=== PATIENT | female | born 1940 | race Caucasian/White ===

== ENCOUNTER 2017-07-28 09:59 | Outpatient (CLI) | payer MEDICARE ==
--- NOTE | 2017-07-28 11:58 | RAD ---
LUMBAR SPINE TWO VIEWS: History: Back pain. Intervertebral degenerative disc changes in the lumbar region. Old compression fr acture. Comparison: 05-17-14 FINDINGS: On the frontal view there is a scoliotic curvature, convexity to the left, with apex at L2-3 which ap pears stable. On the lateral view there is a wedge compression deformity involving the L1 vertebra which also remai ns stable in appearance. Minimal retropulsion of the posterior cortex of L1. The only lumbar vertebra maintain height. There is an anterolisthesis at L5-S1, grade I, which is stable in appearance. Mild degenerative spurring and mild facet hypertrophy appears unchanged. IMPRESSION: The lumbar spine findings appear stable from 05-17-14. POS: [facility]
--- NOTE | 2017-07-28 13:00 | MRI ---
MRI LUMBAR SPINE WITHOUT CONTRAST: INDICATIONS: History of lumbar compression fracture three days ago. The patient reports pain with walking, standi ng, and sitting. The pain is localized into the right buttock region. COMPARISON: Prior exam dated 08/06/2014. FINDINGS: The moderate to prominent compression abnormality involving L1 is stable. Mild retrolisthesis of L1 on L2 is stable. The conus is seen to terminate at approximately L1. The visualized retroperitoneum and paravertebral soft tissues appear within normal limits. There is stable levoscoliosis of the xiomara mbar spine. At L5-S1, there is grade 1 anterolisthesis. There is moderate to severe facet joint degenerative blanka nge. There is an asymmetric to the left broad-based pseudo bulge. Constellation of findings induces mild left neural foraminal narrowing. At L4-L5, there is mild facet joint degenerative change and broad-based bulge inducing mild left neur al foraminal narrowing. At L3-L4, there is a broad-based bulge with facet joint degenerative change without appreciable centr al canal or neural foraminal narrowing. At L2-L3, there is no appreciable central canal or neural foraminal narrowing. At L1-L2, there is an asymmetric to the right disk osteophyte complex inducing mild right neural fora cary narrowing, which is stable. At T12-L1, there is a broad-based disk osteophyte complex causing mild effacement of the ventral suba rachnoid space, without appreciable conus contact. No appreciable neural foraminal narrowing is evid ent. IMPRESSION: 1. Stable multilevel spondylosis of the lumbar spine. 2. Stable compression abnormality of L1. 3. Grade 1 anterolisthesis of L5 on S1, stable. 4. Stable mild left neural foraminal narrowing at L5-S1. 5. Mild retrolisthesis of L1-L2 is stable. POS: [facility]
== END 2017-07-28 10:00 | disposition home or self-care (01) ==
LOC: TBSIIMAG 09:59
PROVIDERS: ATTEND Neurological Surgery
DX: M51.36 Other intervertebral disc degeneration, lumbar region (principal); Z87.81 Personal history of (healed) traumatic fracture; M47.896 Other spondylosis, lumbar region; M99.83 Other biomechanical lesions of lumbar region; M99.84 Other biomechanical lesions of sacral region
CPT/HCPCS: 72100; 72148

== ENCOUNTER 2017-08-05 09:14 | Outpatient (CLI) | payer MEDICARE ==
--- NOTE | 2017-08-05 11:36 | RAD ---
LUMBAR SPINE THREE VIEWS: History: Low back pain. Comparison: 07-28-17 FINDINGS: Near complete compression of the L1 vertebral body and grade I spondylolisthesis at the lumbosacral j unction are again demonstrated. Other vertebral body heights are maintained. The lumbosacral spondylo listhesis is 0.6 cm when neutral. It is measured at 0.8 cm on the flexion and extension views. Promin ent osteophytosis throughout the lower facets. IMPRESSION: 1. Translational motion of the Grade I spondylolisthesis at the lumbosacral junction. 2. Near complete compression of the L1 vertebral body with kyphotic angulation. 3. Lower lumbar spondylosis. POS: [facility]
== END 2017-08-05 09:15 | disposition home or self-care (01) ==
LOC: RAD 09:14
PROVIDERS: ATTEND Nurse Practitioner Family
DX: M43.17 Spondylolisthesis, lumbosacral region (principal); M47.896 Other spondylosis, lumbar region
CPT/HCPCS: 72100

== ENCOUNTER 2017-08-24 13:04 | Outpatient (CLI) | payer MEDICARE | END 2017-08-24 13:05 | disposition home or self-care (01) | LOC: BICMAMMO 13:04 | PROVIDERS: ATTEND Family Medicine | DX: Z12.31 Encounter for screening mammogram for malignant neoplasm of breast (principal); Z80.3 Family history of malignant neoplasm of breast | CPT/HCPCS: 77063; 77067 ==

== ENCOUNTER 2018-02-09 09:43 | Emergency (ER) | payer MEDICARE ==
[2018-02-09] MEDS ORDERED: Bacitracin Zinc 1 Packet ONE (10:17)
== END 2018-02-09 10:20 | disposition home or self-care (01) ==
LOC: ERS 09:43
DX: T23.201A Burn of second degree of right hand, unspecified site, initial encounter (principal); J30.2 Other seasonal allergic rhinitis; E78.5 Hyperlipidemia, unspecified; G47.30 Sleep apnea, unspecified; I10 Essential (primary) hypertension; Z79.899 Other long term (current) drug therapy; Z79.82 Long term (current) use of aspirin; X19.XXXA Contact with other heat and hot substances, initial encounter
CPT/HCPCS: 99283

== ENCOUNTER 2019-02-18 01:30 | Emergency (ER) | payer MEDICARE ==
[2019-02-18 02:34] LABS: Bilirubin Negative (Negative); Blood, Urine 3+ (Negative); Clarity Turbid (Clear); Glucose, Urine (Dipstick) Normal (Negative); Leukocyte 500 Leu/uL (Negative); Nitrite Negative (Negative); Protein, Urine (Dipstick) 20 mg/dL (Neg-Trace); RBC/HPF Greater than 50 HPF (0-3); Squamous Epithelial 0-3 HPF (0-3); Urobilinogen Normal mg/dL (Less than 2); WBC/HPF Greater than 50 HPF (0-3)
[2019-02-18 02:35] LABS: Bacteria/HPF 1+ HPF (None Seen)
== END 2019-02-18 03:01 | disposition home or self-care (01) ==
LOC: ERS 01:30
DX: N39.0 Urinary tract infection, site not specified (principal); E78.00 Pure hypercholesterolemia, unspecified; I10 Essential (primary) hypertension; G47.30 Sleep apnea, unspecified; E78.5 Hyperlipidemia, unspecified; Z79.82 Long term (current) use of aspirin; Z79.899 Other long term (current) drug therapy
CPT/HCPCS: 81003; 81015; 87086; 99283

== ENCOUNTER 2019-11-29 22:18 | Inpatient (IN) | payer MEDICARE, OTHER ==
[2019-11-29 22:53] LABS: #Basophils 0.1 thou/uL (0.0-0.2); #Eosinphils 0.2 thou/uL (0.0-0.7); #Lymphocytes 4.8 thou/uL (1.20-3.40); #Monocytes 0.9 thou/uL (0.11-0.59); #Neutrophils 4.8 thou/uL (1.40-6.50); %Basophils 0.6 % (0.0-1.0); %Eosinophils 1.6 % (0.0-10.0); %Lymphocytes 44.8 % (21.0-51.0); %Monocytes 8.5 % (0.0-10.0); %Neutrophils 44.6 % (42.0-75.0); Mean Corpuscular HGB CONC 33.4 g/dL (32.0-36.0); Mean Corpuscular Hemoglobin 29.6 pg (27.0-31.0); Mean Corpuscular Volume 88.8 fL (78.0-98.0); Mean Platelet Volume 6.9 fL (7.4-10.4); Platelet Count 262 thou/uL (130-400); RBC Distribution Width 11.9 % (11.5-14.5); White Blood Cell (WBC) Count 10.7 thou/uL (4.8-10.8)
[2019-11-29 23:13] LABS: ALT (SGPT) 22 U/L (8-55); AST (SGOT) 27 U/L (5-34); Albumin 4.4 g/dL (3.4-4.8); Alkaline Phosphatase 88 U/L (40-110); Anion Gap 18 mmol/L (10-20); BUN (Urea Nitrogen) 17 mg/dL (9.8-20.1); Bilirubin, Total 0.6 mg/dL (0.2-1.2); Calc. Creatinine Clearance 0 mL/min (70-130); Calcium 10.1 mg/dL (7.8-10.44); Carbon Dioxide 19 mmol/L (23-31); Chloride 108 mmol/L (98-107); Estimated GFR-MDRD 87; Globulin 2.7 g/dL (2.4-3.5); Glucose 95 mg/dL (83-110); Potassium 3.9 mmol/L (3.5-5.1); Protein, Total 7.1 g/dL (6.0-8.3); Sodium 141 mmol/L (136-145)
[2019-11-30] MEDS ORDERED: Ondansetron PF 4 MG/2 ML Vial IVP PRN (00:45)
[2019-11-30] MEDS ORDERED: Ondansetron ODT 4 MG TAB SL PRN (00:45)
[2019-11-30] MEDS ORDERED: Acetaminophen 325 MG TAB PO PRN (01:12)
--- NOTE | 2019-11-30 01:55 | PDOC.HHP ---
Hospitalist HPI - History of Present Illness Bloody stools History of Present Illness: Mrs. Kirkland is a 71-year-old female with a past medical history of hypertension, hyperlipidemia, obstructive sleep apnea, who presents for bloody stools. Patient reports that earlier this morning she had 6-7 episodes of large amounts of dark red blood mixed with clots and diarrhea. No history of prior GIB. Does report a remote history of diverticulitis which was treated as an outpatient years ago. Daily baby ASA, but otherwise no NSAIDs. Pt felt lightheaded with some mild abdominal cramping, but otherwise well. Denies chest pain, SOB, abdominal pain. Denies N/V. Does endorse history of hemorrhoids, but reports blood from those was light pink and mild streaking, compared to these current large volume maroon stools. In ED initial labs revealed H/H of 13.0/39, WBC 10.7. BUN/Cr 17/0.66. lipase 34. Patient received 1L NS. Vital signs 130/78, 92, 17, 97.5, 94% on room air. Hospitalist ROS - Review of Systems Constitutional: denies: fever, chills, sweats, weakness, malaise, other Eyes: denies: pain, vision change, conjunctivae inflammation, eyelid inflammation, redness, other ENT: denies: ear pain, ear discharge, nose pain, nose discharge, nose congestion, mouth pain, mouth swelling, throat pain, throat swelling, other Respiratory: denies: cough, dry, shortness of breath, hemoptysis, SOB with excertion, pleuritic pain, sputum, wheezing, other Cardiovascular: reports: light headedness. denies: chest pain, palpitations, orthopnea, paroxysmal noc. dyspnea, edema, other Gastrointestinal: reports: melena, hematochezia. denies: nausea, vomiting, abdominal pain, diarrhea, constipation, other Genitourinary: denies: dysuria, frequency, incontinence, hematuria, retention, other Musculoskeletal: denies: neck pain, shoulder pain, arm pain, back pain, hand pain, leg pain, foot pain, other Skin: denies: rash, lesions, luna, bruising, other Neurological: denies: weakness, numbness, incoordination, change in speech, confusion, seizures, other - Medication Medications: Home medications include: 1. lisinopril 2. atorvastatin 3. metoprolol 4. baby ASA No known drug allergy Hospitalist History - Past Medical History Source: patient Cardiac: reports: no pertinent history Pulmonary: reports: high cholesterol, hypertension, Other (sleep apnea) Gastrointestinal: reports: Diverticulosis, Hemorrhoids - Past Surgical History Past Surgical History: reports: Appendectomy, Hysterectomy, Hernia Repair - Family History Family History: reports: no pertinent history - Social History Smoking Status: Never smoker Alcohol: reports: Rare Drugs: reports: none Living Situation: With Family Activity level: independent ambulation - Exam General Appearance: NAD, awake alert Eye: PERRL, anicteric sclera ENT: normocephalic atraumatic, no oropharyngeal lesions, moist mucosa Neck: supple, symmetric, no JVD, no thyromegaly, no lymphadenopathy, no carotid bruit Heart: RRR, no murmur, no gallops, no rubs, normal peripheral pulses Respiratory: CTAB, no wheezes, no rales, no ronchi, normal chest expansion, no tachypnea, normal percussion Gastrointestinal: soft, non-tender, non-distended, normal bowel sounds, no palpable masses, no hepatomegaly, no splenomegaly, no bruit Extremities: no cyanosis, no clubbing, no edema Skin: normal turgor, no lesions, no rashes Neurological: cranial nerve grossly intact, normal sensation to touch, no weakness, no focal deficits, no new deficit Musculoskeletal: normal tone, normal strength, no muscle wasting Psychiatric: normal affect, normal behavior, A&O x 3 Hospitalist Results - Labs Result Diagrams: 11/29/19 22:35 11/29/19 22:35 Lab results: WBC 10.7 thou/uL (4.8-10.8) 11/29/19 22:35 Hgb 13.0 g/dL (12.0-16.0) 11/29/19 22:35 Hct 39.0 % (36.0-47.0) 11/29/19 22:35 MCV 88.8 fL (78.0-98.0) 11/29/19 22:35 Plt Count 262 thou/uL (130-400) 11/29/19 22:35 Neutrophils % 44.6 % (42.0-75.0) 11/29/19 22:35 Sodium 141 mmol/L (136-145) 11/29/19 22:35 Potassium 3.9 mmol/L (3.5-5.1) 11/29/19 22:35 Chloride 108 mmol/L (98-107) H 11/29/19 22:35 Carbon Dioxide 19 mmol/L (23-31) L 11/29/19 22:35 BUN 17 mg/dL (9.8-20.1) 11/29/19 22:35 Creatinine 0.66 mg/dL (0.6-1.1) 11/29/19 22:35 Glucose 95 mg/dL (83-110) 11/29/19 22:35 Calcium 10.1 mg/dL (7.8-10.44) 11/29/19 22:35 Total Bilirubin 0.6 mg/dL (0.2-1.2) 11/29/19 22:35 AST 27 U/L (5-34) 11/29/19 22:35 ALT 22 U/L (8-55) 11/29/19 22:35 Alkaline Phosphatase 88 U/L (40-110) 11/29/19 22:35 Serum Total Protein 7.1 g/dL (6.0-8.3) 11/29/19 22:35 Albumin 4.4 g/dL (3.4-4.8) 11/29/19 22:35 Lipase 34 U/L (8-78) 11/29/19 22:35 Hospitalist H&P A/P - Problem (1) GIB (gastrointestinal bleeding) Code(s): K92.2 - GASTROINTESTINAL HEMORRHAGE, UNSPECIFIED Status: Acute (2) Hypertension Code(s): I10 - ESSENTIAL (PRIMARY) HYPERTENSION Status: Acute (3) Hyperlipidemia Code(s): E78.5 - HYPERLIPIDEMIA, UNSPECIFIED Status: Acute - Plan Plan: GIB: 79F with hx HTN, HLD, DWAYNE who presents with 1 day of large volume maroon colored stools with clots. On daily baby ASA. H/H stable on admission at 13.0/39, however may have not yet equilibrated. BUN 17. Mild lightheadedness, otherwise asymptomatic. Vitals stable. PLAN: -H/H q6hr, PT/INR, LFTs -Pantoprazole q12 -Two large bore IVs. IVF -Type and screen -GI consult, NPO at midnight -Hold home ASA Hypertension: History of hypertension. On home lisinopril, metoprolol. Plan: -Hold home medication in setting of GI bleed -Monitor blood pressure Obstructive sleep apnea: Continue home CPAP at night Hyperlipidemia Continue home atorvastatin 20 mg. DVT prophylaxis: Contraindicated secondary to GI bleed, encourage ambulation, SCDs CODE STATUS: DO NOT RESUSCITATE. Patient reports that she has DNR, MPOA paperwork filed out of hospital and would like to continue to be DNR while inpatient. She has named her Liban Kirkland as her designated medical decision-maker. Case discussed with attending physician Dr. Lima.
[2019-11-30 02:15] LABS: #Basophils 0.1 thou/uL (0.0-0.2); #Eosinphils 0.2 thou/uL (0.0-0.7); #Lymphocytes 3.7 thou/uL (1.20-3.40); #Monocytes 0.9 thou/uL (0.11-0.59); #Neutrophils 5.6 thou/uL (1.40-6.50); %Basophils 0.9 % (0.0-1.0); %Eosinophils 1.8 % (0.0-10.0); %Monocytes 8.5 % (0.0-10.0); %Neutrophils 53.7 % (42.0-75.0); Hemoglobin 11.9 g/dL (12.0-16.0); Mean Corpuscular HGB CONC 33.7 g/dL (32.0-36.0); Mean Corpuscular Hemoglobin 29.9 pg (27.0-31.0); Mean Corpuscular Volume 88.6 fL (78.0-98.0); Mean Platelet Volume 6.5 fL (7.4-10.4); Platelet Count 238 thou/uL (130-400); RBC Distribution Width 11.8 % (11.5-14.5); Red Blood Cell (RBC) Count 3.98 mill/uL (4.20-5.40); White Blood Cell (WBC) Count 10.5 thou/uL (4.8-10.8)
[2019-11-30 02:22] VITALS: BMI 26.3
[2019-11-30 02:45] LABS: Anion Gap 18 mmol/L (10-20); BUN (Urea Nitrogen) 17 mg/dL (9.8-20.1); Calc. Creatinine Clearance 82 mL/min (70-130); Calcium 9.6 mg/dL (7.8-10.44); Carbon Dioxide 19 mmol/L (23-31); Chloride 108 mmol/L (98-107); Estimated GFR-MDRD Greater than 90; Glucose 112 mg/dL (83-110); Potassium 3.7 mmol/L (3.5-5.1); Sodium 141 mmol/L (136-145)
[2019-11-30] MEDS ORDERED: Sodium Chloride 0.9% (PF) 10 ML VIAL FS PRN (03:30)
[2019-11-30 06:19] LABS: INR-International Normal Ratio 1.1; PTT 27.7 sec (22.9-36.1); Prothrombin Time 13.8 sec (12.0-14.7)
[2019-11-30 06:41] LABS: ALT (SGPT) 20 U/L (8-55); AST (SGOT) 21 U/L (5-34); Albumin 3.8 g/dL (3.4-4.8); Alkaline Phosphatase 74 U/L (40-110); Bilirubin, Direct 0.2 mg/dL (0.1-0.3); Bilirubin, Total 0.5 mg/dL (0.2-1.2); Magnesium 1.8 mg/dL (1.6-2.6); Phosphorus 3.3 mg/dL (2.3-4.7); Protein, Total 5.8 g/dL (6.0-8.3)
[2019-11-30 07:55] LABS: Hemoglobin 11.1 g/dL (12.0-16.0)
[2019-11-30] MEDS: Pantoprazole 40 MG VIAL IVP SCH ×2 (08:24→20:01)
[2019-11-30] MEDS: Sodium Chloride 0.9% 1,000 ML IV SCH ×2 (08:28→15:21)
[2019-11-30 12:47] LABS: SARS-CoV-2 MS2 Positive; SARS-CoV-2 N Gene Negative; SARS-CoV-2 S Gene Negative; SARS-CoV-2 by NAA Not Detected (NotDetected); SARS-CoV-2 orf1ab Negative
[2019-11-30 14:13] LABS: Hemoglobin 11.6 g/dL (12.0-16.0)
--- NOTE | 2019-11-30 15:34 | PDOC.HOSPP ---
- Subjective Encounter Date: 11/30/19 Encounter Time: 04:00 Subjective: The patient states she had one bloody stool at 7 am, dark red in color. At 9 am it was light pink. At 11 am she had another bloody stool. At 12;00 pm she had no blood just streaks when she wiped - Objective Vital Signs & Weight: Vital Signs (12 hours) Temp Pulse Resp BP Pulse Ox 11/30/19 11:11 97.8 F 84 20 111/71 92 L 11/30/19 07:01 98.1 F 96 18 115/75 93 L 11/30/19 04:00 96 Weight Weight 153 lb 4.8 oz Result Diagrams: 11/30/19 13:37 11/30/19 01:52 Hospitalist ROS - Review of Systems Constitutional: denies: fever, chills - Medication Medications: Active Medications Generic Name Dose Route Start Last Admin Trade Name Freq PRN Reason Stop Dose Admin Acetaminophen 650 mg 11/30/19 01:12 11/30/19 08:32 Acetaminophen 325 Mg Tab PO 650 mg Q4H PRN Administration Headache/Fever/Mild Pain (1-3) Sodium Chloride 1,000 mls @ 75 mls/hr 11/30/19 01:15 11/30/19 15:21 Normal Saline 0.9% IV 1,000 mls .[id number] VARUN Administration Pantoprazole Sodium 40 mg 11/30/19 09:00 11/30/19 08:24 Pantoprazole 40 Mg Vial IVP 40 mg Q12HR VARUN Administration - Exam General Appearance: NAD, awake alert Eye: PERRL, anicteric sclera ENT: normocephalic atraumatic, no oropharyngeal lesions Neck: supple, symmetric, no JVD Heart: RRR, no murmur, no gallops, no rubs Respiratory: CTAB, no wheezes, no rales, no ronchi Gastrointestinal: soft, non-distended Gastrointestinal - other findings: rectal exam: hemorrhoid with no evidence of blood . LLQ tenderness Extremities: no cyanosis, no clubbing, no edema Skin: normal turgor, no lesions, no rashes Neurological: cranial nerve grossly intact, normal sensation to touch, no focal deficits, no new deficit Hosp A/P - Plan This is a 79 year old female with no PMH of GI bleed presenting with lower GI bleed Acute GI bleed - Hb stable at 11, continue protonix for now - will check CT abdomen - GI was consulted, plan for EGD and colonoscopy tomorrow - continue protonix Hyperlipidemia - continue atorvastatin Hypertension - hold metoprolol
--- NOTE | 2019-11-30 16:21 | CT ---
CT Abdomen Pelvis WO Con 11/30/2019 4:02 PM HISTORY: Rectal bleeding which started one day ago. COMPARISON: Postcontrast CT abdomen and pelvis on 01/12/2014. Technique: Multiple contiguous axial CT images are obtained through the abdomen and pelvis without IV contrast. Coronal reformats are provided. FINDINGS: This examination is limited for the evaluation of solid organs and vascular structures due to the lac k of intravenous contrast. Lower Chest: Calcified granulomata are again seen at each lung base. Abdomen: Liver: Grossly normal non-enhanced CT appearance. Gallbladder: Surgically absent. Pancreas: Grossly normal nonenhanced CT appearance. Spleen: Calcified granulomata. Adrenals: Grossly normal nonenhanced CT appearance. Kidneys: No renal calculi are visualized, and there is no evidence of hydronephrosis. Ureters: No ureteral calculus is seen.. Pelvis: Urinary bladder: within normal limits. Reproductive Organs: Evidence of hysterectomy. Lymph Nodes: No enlarged lymph nodes. Bowel: Evidence of colonic diverticulosis. Loops of small bowel are normal in caliber. Peritoneum: No free fluid, free air, or fluid collection. Retroperitoneum: within normal limits. Vessels: Vascular calcifications again seen in the abdominal aorta and iliac arteries.. Abdominal Wall: within normal limits. Bones: Burst fracture L1 vertebral body with greater than 50% loss of height is again seen. Tripped h eight loss is similar to prior study as well as MRI lumbar spine on 07/28/2017. Again noted is grade 1 anterolisthesis of L5 on S1. Left convex curvature lumbar spine is present. IMPRESSION: 1. No renal or ureteral calculi are seen bilaterally. 2. Postsurgical changes related to cholecystectomy and hysterectomy. 3. Burst fracture with greater than 50% loss of height L1 vertebral body. Degree of height loss is si milar to MRI lumbar spine on 07/28/2017. 4. Colonic diverticulosis. 5. Vascular calcifications.
[2019-11-30] MEDS ORDERED: GoLYTELY 4,000 ml Bottle PO SCH (17:00)
[2019-12-01] MEDS: Sodium Chloride 0.9% 1,000 ML IV SCH (03:29)
--- NOTE | 2019-12-01 07:20 | CON ---
DATE OF CONSULTATION: 11/30/2019 REFERRING PHYSICIAN: Dr. Brooke Link. REASON FOR CONSULTATION: GI bleeding. HISTORY OF PRESENT ILLNESS: Ms. Cherelle Kirkland is a very pleasant 79-year-old female, admitted to hospital last night through the ER with painless rectal bleeding. Around 5 o'clock yesterday evening, she felt like going to the bathroom. She passed some gas and followed by passage of bright-red blood per rectum. Apparently, she has had about 4 or 5 episodes yesterday before she came to the ER. This morning, she has had 2 more episodes of rectal bleeding. The patient has no abdominal pain, but . She feels gaseous. There is no nausea, no vomiting. No history of fever or chills. Denies any epigastric discomfort, nausea, or dyspepsia. The patient has had a colonoscopy more than 10 years ago and was negative for any pathology. A few years ago, she had an episode of acute diverticulitis and was seen by a surgeon next door. She does not know the name of the surgeon. She was given some antibiotics and she got better. The patient over the years has done very well until last night. She denies any weight loss. There is no family history of colon cancer. The patient has 3 bloody stools today and the last one is actually slowing down as she does not have blood in the commode but she had some blood on the tissue paper. There is no relevant history. ALLERGIES: TRAMADOL. SOCIAL HISTORY: She is . She does not smoke or drink alcohol. MEDICAL ILLNESSES: 1. Hypertension, on medication. 2. Hyperlipidemia. 3. Seasonal allergies. There is no history of any heart disease, any diabetes, any COPD. She does have history of sleep apnea and is on CPAP. Other medical illnesses include osteoporosis, arthritis. PAST SURGICAL HISTORY: 1. Status post hysterectomy. 2. Status post laparoscopic cholecystectomy. 3. Surgery for fractured left ankle with some plate and pin placement. FAMILY HISTORY: Both parents had heart disease. No family history of any malignancy. REVIEW OF SYSTEMS: A 10-point system reviewed. CONSTITUTIONAL: No history of any fever. No weight loss. She had good exercise tolerance. HEAD: No chronic headache. No dizziness. EYES: No diplopia. No impaired vision. EARS: No hearing loss. No discharge or bleeding. NOSE: No nose bleed. No rhinorrhea. THROAT: No dysphagia. No sore throat. NECK: No stiffness or limitation of movement. LUNGS: No chronic coughing, hemoptysis, or dyspnea. CARDIOVASCULAR: No chest pain. No palpitation. No dyspnea, orthopnea or PND. GI: As per history of present illness. : No dysuria, hematuria. MUSCULOSKELETAL: History of chronic jaw pain on both sides. NEUROPSYCHIATRY: Not known. PHYSICAL EXAMINATION: GENERAL: A very pleasant female, appears very comfortable. She was patient's . VITAL SIGNS: Afebrile. Pulse is 84, blood pressure is 111/71. HEENT: Conjunctivae are clear. NECK: Supple. No carotid bruit heard. No enlarged lymph nodes. The thyroid is not enlarged. CARDIOVASCULAR: Normal heart sounds. She has a systolic murmur grade 3/6. LUNGS: Clear to auscultation. ABDOMEN: Abdomen is soft. Abdomen is nondistended. Abdomen is nontender. No organomegaly. No masses. EXTREMITIES: No edema. LABORATORY DATA: On admission; CBC: WBC 10,700, hemoglobin 13, hematocrit 39, MCV 88.8, platelet count 262,000, polymorphs 44, lymphocytes 44, monocytes 8. Blood count has been drifting slowly from 13 to 11.9 to 11.6 at 1:37 p.m. today. Chemistry panel; chem 7 is normal. BUN 17, creatinine 0.62, glucose 112, calcium 9.6, magnesium 1.8, bilirubin 0.5, AST 21, ALT 20, alkaline phosphatase 74, lipase 34. CLINICAL IMPRESSION: 1. A 79-year-old female with GI bleeding, appears to be most likely diverticular bleeding. Blood count dropped down by 1 g since admission. In the last bowel movement, she had no blood in the commode, but she saw some blood on tissue paper. 2. Hypertension. 3. Osteoporosis. 4. Sleep apnea. 5. Previous hysterectomy. 6. Appendectomy. 7. Laparoscopic cholecystectomy. 8. Past history of diverticulitis several years ago. RECOMMENDATIONS: 1. Clear liquid diet. 2. Follow up H and H. 3. EGD and colonoscopy tomorrow. I will make further recommendation after these studies. Job ID: [id number]
[2019-12-01] MEDS ORDERED: PROPOFOL 200 MG/20 ML VIAL ONE (10:46)
--- NOTE | 2019-12-01 11:22 | PDOC.HOSPP ---
- Subjective Encounter Date: 12/01/19 Encounter Time: 09:30 Subjective: no further bleeding or nausea is ambulating in room no abd pain - Objective Vital Signs & Weight: Vital Signs (12 hours) Temp Pulse Resp BP Pulse Ox 12/01/19 08:39 95 12/01/19 07:23 97.9 F 73 16 123/81 95 Weight Weight 153 lb 4.8 oz I&O: 11/30/19 12/01/19 12/02/19 06:59 06:59 06:59 Intake Total 6495 Balance 6495 Result Diagrams: 11/30/19 19:34 11/30/19 01:52 Hospitalist ROS - Medication Medications: Active Medications Generic Name Dose Route Start Last Admin Trade Name Freq PRN Reason Stop Dose Admin Acetaminophen 650 mg 11/30/19 01:12 11/30/19 08:32 Acetaminophen 325 Mg Tab PO 650 mg Q4H PRN Administration Headache/Fever/Mild Pain (1-3) Sodium Chloride 1,000 mls @ 75 mls/hr 11/30/19 01:15 12/01/19 03:29 Normal Saline 0.9% IV 1,000 mls .[id number] VARUN Administration Pantoprazole Sodium 40 mg 11/30/19 09:00 11/30/19 20:01 Pantoprazole 40 Mg Vial IVP 40 mg Q12HR VARUN Administration - Exam General Appearance: awake alert Eye: PERRL, anicteric sclera ENT: no oropharyngeal lesions, moist mucosa Neck: supple, no JVD Heart: RRR, no murmur Respiratory: no wheezes, no rales Gastrointestinal: soft, non-tender, non-distended, normal bowel sounds Extremities: no cyanosis, no edema Neurological: cranial nerve grossly intact, no focal deficits Psychiatric: normal affect, A&O x 3 Hosp A/P (1) GIB (gastrointestinal bleeding) Code(s): K92.2 - GASTROINTESTINAL HEMORRHAGE, UNSPECIFIED Status: Acute Qualifiers: GI bleed type/associated pathology: unspecified gastrointestinal hemorrhage type Qualified Code(s): K92.2 - Gastrointestinal hemorrhage, unspecified (2) Hyperlipidemia Code(s): E78.5 - HYPERLIPIDEMIA, UNSPECIFIED Status: Chronic Qualifiers: Hyperlipidemia type: unspecified Qualified Code(s): E78.5 - Hyperlipidemia, unspecified (3) Hypertension Code(s): I10 - ESSENTIAL (PRIMARY) HYPERTENSION Status: Chronic Qualifiers: Hypertension type: essential hypertension Qualified Code(s): I10 - Essential (primary) hypertension (4) Lumbar compression fracture Code(s): S32.000A - WEDGE COMPRESSION FRACTURE OF UNSP LUMBAR VERTEBRA, INIT Status: Chronic Qualifiers: Encounter type: sequela Lumbar vertebra fracture level: L1 Qualified Code(s): S32.010S - Wedge compression fracture of first lumbar vertebra, sequela (5) DWAYNE (obstructive sleep apnea) Code(s): G47.33 - OBSTRUCTIVE SLEEP APNEA (ADULT) (PEDIATRIC) Status: Chronic - Plan h/h has remained stable for egd/colonoscopy today is on protonix, iv fluids hemostable
[2019-12-01 11:29] VITALS: BP 149/88; TEMP 97.8
[2019-12-01] MEDS: Pantoprazole 40 MG VIAL IVP SCH (11:56)
--- NOTE | 2019-12-01 15:21 | DIS ---
DATE OF ADMISSION: 11/30/2019 DATE OF DISCHARGE: 12/01/2019 DISCHARGE DISPOSITION: Home. PRIMARY DISCHARGE DIAGNOSIS: GI bleed likely due to diverticulosis. SECONDARY DISCHARGE DIAGNOSES: 1. Hypertension. 2. Dyslipidemia. 3. History of obstructive sleep apnea. 4. Chronic L1 compression fracture. PROCEDURES DONE DURING HOSPITALIZATION: CT of the abdomen and pelvis without contrast done, showed no renal or ureteral calculi. There is a L1 burst fracture seen. Colonic diverticulosis seen. Vascular calcifications were seen on the CT scan. She has had EGD, colonoscopy done by Dr. Klein. The official results are pending. Serial H and H done, was stable at 12 and 36, platelet count 238, MCV is 88. PT/INR, PTT within normal limits. BUN 17, creatinine 0.6. COVID-19 PCR was not detected on 11/29/2019. DISCHARGE MEDICATIONS: 1. Ambien 5 mg p.o. at bedtime p.r.n. 2. [place] p.r.n. for pain. 3. Atorvastatin 20 mg p.o. daily. 4. Lopressor 50 mg daily. 5. Lisinopril 5 mg p.o. daily. ALLERGIES: ULTRAM. DISCHARGE PLAN: The patient to follow up with Dr. Madan Kellogg, her primary care physician in 1 week. BRIEF COURSE DURING HOSPITALIZATION: The patient initially came to ER with complaints of 6 to 7 bloody stools. In view of this history, she was admitted to medical floor. She was kept n.p.o. She has had serial H and H done, which have not shown any significant drop. No transfusion was done. She has had consultation with Dr. Klein for Gastroenterology. The patient has had upper and lower endoscopy done by Dr. Klein. Per my conversation with Dr. Klein, there was no active bleeding seen. Likely, her bleed is from diverticulosis. She is hemodynamically stable and is wanting to go home. She will be given oral solid diet prior to discharge. She has been cleared by Dr. Klein for discharge. Please see a [id number] documentation for the day of discharge on [employer]. Job ID: [id number]
--- NOTE | 2019-12-01 17:50 | OP ---
DATE OF PROCEDURE: 12/01/2019 OPERATIVE PROCEDURE: Incomplete colonoscopy. PREOPERATIVE DIAGNOSIS: Rectal bleeding. POSTOPERATIVE DIAGNOSES: 1. Large hemorrhoids. 2. Severe sigmoid diverticular disease. 3. The scope could not be advanced past about 70 cm at the anal margin as the patient has severe pain and most likely has some adhesions from previous surgery scope was advanced all the way to cecum. At the time of endoscopy, no bleeding seen. Based on the findings, I believe the bleeding came from diverticular disease. DESCRIPTION OF PROCEDURE: The patient was placed on her left lateral position and was given sedation by Anesthesia Department. A rectal exam was done before scope was advanced into the rectum. No lesions felt on rectal exam. A Pentax video colonoscope was introduced into the rectum and advanced to a distance of 70 cm from the anal margin. The exam was very difficult. Although, lumen was wide open and could see caused severe pain. The patient has had previous surgeries, I believe, most likely from the scar tissue, which made the exam somewhat difficult. The patient had large hemorrhoids. The patient had severe sigmoid diverticula. Some of the diverticula were very wide-mouthed. Multiple diverticula seen. The lumen was difficult to visualize, but I was able to get past the sigmoid colon. As the scope was advanced to the proximal colon, the patient experienced more and more pain. Because of the above reason, I elected to terminate the procedure. At the time of endoscopy, no active bleeding seen. Retroflexion of scope in the rectum showed large hemorrhoids. Job ID: [id number]
--- NOTE | 2019-12-01 18:11 | OP ---
DATE OF PROCEDURE: 12/01/2019 OPERATIVE PROCEDURE: Esophagogastroduodenoscopy. PREOPERATIVE DIAGNOSIS: Gastrointestinal bleeding. POSTOPERATIVE DIAGNOSES: 1. Hiatal hernia. 2. Focal gastritis of the gastric body. Otherwise, exam is normal. DESCRIPTION OF PROCEDURE: The patient was placed on her left lateral position and was given sedation by Anesthesia Department. A [employer] video gastroscope under direct vision passed down the oropharynx, past the GE junction into the stomach and subsequently into the descending duodenum. The esophageal mucosa appears normal throughout. In the GE junction, no pathology seen. The patient had a hiatal hernia measuring approximately 3 cm. Retroflexion failed to show any pathology in fundus or cardia. Over the gastric body, there was an area of mucosal edema, erythema. In the incisura angularis, gastric antrum, no lesion seen. In the duodenum including the bulb and descending part, no pathology seen. The stomach decompressed and the scope removed. Job ID: [id number]
== END 2019-12-01 15:42 | disposition home or self-care (01) | DRG 378 ==
LOC: ERS 22:18 → T4-B 23:49 → OBSVTOIN 11-30 17:35
PROVIDERS: ADMIT Internal Medicine; ATTEND Internal Medicine
PROC: 0DJ08ZZ Inspection of Upper Intestinal Tract, Via Natural or Artificial Opening Endoscopic (ICD-10-PCS; principal; 2019-12-01)
PROC: 0DJD8ZZ Inspection of Lower Intestinal Tract, Via Natural or Artificial Opening Endoscopic (ICD-10-PCS; 2019-12-01)
DX: K57.31 Diverticulosis of large intestine without perforation or abscess with bleeding (principal); M48.56XA Collapsed vertebra, not elsewhere classified, lumbar region, initial encounter for fracture; E78.5 Hyperlipidemia, unspecified; G47.33 Obstructive sleep apnea (adult) (pediatric); J30.2 Other seasonal allergic rhinitis; M19.90 Unspecified osteoarthritis, unspecified site; Z20.828 Contact with and (suspected) exposure to other viral communicable diseases; K44.9 Diaphragmatic hernia without obstruction or gangrene; I10 Essential (primary) hypertension; Z66 Do not resuscitate; Z90.49 Acquired absence of other specified parts of digestive tract; Z90.710 Acquired absence of both cervix and uterus; Z87.891 Personal history of nicotine dependence; Z79.899 Other long term (current) drug therapy; K64.9 Unspecified hemorrhoids
CPT/HCPCS: 36415; 74176; 80048; 80053; 80076; 82274; 83690; 83735; 84100; 85025; 85610; 85730; 86850; 86870; 86900; 86901; 87635; 94660; 96361; 96374; 99285; C9113; G0378; J2704; U0003

== ENCOUNTER 2020-07-03 19:30 | Outpatient (CLI) | payer MEDICARE | END 2020-07-03 19:31 | disposition home or self-care (01) | LOC: SLEEPLAB 19:30 | PROVIDERS: ATTEND Family Medicine | DX: G47.33 Obstructive sleep apnea (adult) (pediatric) (principal); G31.84 Mild cognitive impairment of uncertain or unknown etiology; R53.83 Other fatigue; R40.0 Somnolence; R09.89 Other specified symptoms and signs involving the circulatory and respiratory systems; E66.9 Obesity, unspecified; R06.83 Snoring; Z68.30 Body mass index [BMI] 30.0-30.9, adult | CPT/HCPCS: 95811 ==

== ENCOUNTER 2021-01-09 07:49 | Outpatient (CLI) | payer MEDICARE | END 2021-01-09 07:50 | disposition home or self-care (01) | LOC: BICMAMMO 07:49 | PROVIDERS: ATTEND Family Medicine | DX: Z12.31 Encounter for screening mammogram for malignant neoplasm of breast (principal); M81.0 Age-related osteoporosis without current pathological fracture; Z98.82 Breast implant status | CPT/HCPCS: 77063; 77067; 77080 ==

== ENCOUNTER 2023-01-07 12:42 | Outpatient (CLI) | payer MEDICARE | END 2023-01-07 12:43 | disposition home or self-care (01) | LOC: BICMAMMO 12:42 | PROVIDERS: ATTEND Family Medicine | DX: Z12.31 Encounter for screening mammogram for malignant neoplasm of breast (principal); Z98.82 Breast implant status | CPT/HCPCS: 77063; 77067 ==

== ENCOUNTER 2023-01-25 14:06 | Outpatient (CLI) | payer MEDICARE ==
[2023-01-25 15:27] LABS: #Basophils 0.1 10x3/uL (0.0-0.2); #Eosinphils 0.1 10x3/uL (0.0-0.5); #Monocytes 0.5 10x3/uL (0.0-1.1); #Neutrophils 3.2 10x3/uL (1.5-8.4); %Basophils 0.8 % (0.0-2.0); %Eosinophils 1.5 % (0.0-6.0); %Neutrophils 49.2 % (40.0-75.0); Hematocrit 39.2 % (34.9-44.5); Hemoglobin 12.6 g/dL (12.0-15.5); Mean Corpuscular HGB CONC 32.1 g/dL (32.0-36.0); Mean Corpuscular Hemoglobin 28.5 pg (27.0-33.0); Mean Corpuscular Volume 88.7 fl (81.6-98.3); Mean Platelet Volume 8.8 fl (7.4-10.4); Platelet Count 184 10x3/uL (150-450); RBC Distribution Width 12.9 % (11.5-14.5); Red Blood Cell (RBC) Count 4.42 10x6/uL (3.90-5.03); White Blood Cell (WBC) Count 6.5 10x3/uL (3.5-10.5)
[2023-01-25 15:55] LABS: ALT (SGPT) 21 U/L (8-55); AST (SGOT) 24 U/L (5-34); Albumin 4.6 g/dL (3.4-4.8); Alkaline Phosphatase 53 U/L (40-110); Anion Gap 13 mmol/L (10-20); BUN (Urea Nitrogen) 10 mg/dL (9.8-20.1); Calc. Creatinine Clearance 0 mL/min (70-130); Calcium 9.4 mg/dL (7.8-10.44); Carbon Dioxide 25 mmol/L (23-31); Chloride 108 mmol/L (98-107); Estimated GFR 88; Globulin 2.2 g/dL (2.4-3.5); Glucose 90 mg/dL (83-110); Protein, Total 6.8 g/dL (5.8-8.1); Sodium 142 mmol/L (136-145)
== END 2023-01-25 14:07 | disposition home or self-care (01) ==
LOC: LABBT 14:06
PROVIDERS: ATTEND Internal Medicine Cardiovascular Disease
DX: Z01.812 Encounter for preprocedural laboratory examination (principal)
CPT/HCPCS: 80053; 85025

== ENCOUNTER 2023-01-27 05:49 | Day surgery (SDC) | payer MEDICARE ==
[2023-01-25 14:41] VITALS: BMI 27.6
[2023-01-27] MEDS ORDERED: Midazolam HCl 2 mg/2 ml Vial ONE (06:06)
[2023-01-27] MEDS ORDERED: fentaNYL 50 mcg/mL 1 mL Vial ONE (06:06)
[2023-01-27] MEDS ORDERED: Lidocaine 1% (PF) 30 ML VIAL ONE (06:06)
[2023-01-27] MEDS ORDERED: Heparin 10,000 UNITS/ 10 ML VIAL ONE (06:06)
[2023-01-27] MEDS ORDERED: Nitroglycerin 50 MG/250 ML BOT 0 ML ONE (06:07)
[2023-01-27] MEDS ORDERED: Ondansetron PF 4 MG/2 ML Vial ONE (07:11)
[2023-01-27] MEDS ORDERED: Iopamidol 370 76% 100 ML VIAL ONE (13:26)
== END 2023-01-27 12:49 | disposition home or self-care (01) ==
LOC: CCL 05:49
PROVIDERS: ATTEND Internal Medicine Cardiovascular Disease
PROC: 4A023N7 Measurement of Cardiac Sampling and Pressure, Left Heart, Percutaneous Approach (ICD-10-PCS; principal; 2023-01-27)
DX: R07.89 Other chest pain (principal); I11.0 Hypertensive heart disease with heart failure; I50.32 Chronic diastolic (congestive) heart failure; I47.10 Supraventricular tachycardia, unspecified; R94.39 Abnormal result of other cardiovascular function study; E78.00 Pure hypercholesterolemia, unspecified; R25.2 Cramp and spasm; Z86.16 Personal history of COVID-19; Z90.49 Acquired absence of other specified parts of digestive tract; Z90.89 Acquired absence of other organs; Z90.710 Acquired absence of both cervix and uterus; Z79.899 Other long term (current) drug therapy; Z79.82 Long term (current) use of aspirin; Z88.5 Allergy status to narcotic agent
CPT/HCPCS: 93454; J3010; 99152; 99153; C1769; C1887; C1894; J1644; J2001; J2250; J2405

== ENCOUNTER 2024-01-16 13:37 | Emergency (ER) | payer MEDICARE | END 2024-01-16 15:31 | disposition home or self-care (01) | LOC: ERS 13:37 | DX: M25.552 Pain in left hip (principal); R51.9 Headache, unspecified; I10 Essential (primary) hypertension; W19.XXXA Unspecified fall, initial encounter; Z79.899 Other long term (current) drug therapy; Z79.82 Long term (current) use of aspirin | CPT/HCPCS: 70450; 72125 ==